=== PATIENT | female | born 2000 | race American Indian/Alaskan Native ===

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

== ENCOUNTER 2020-02-12 23:15 | Inpatient (IN) | payer OTHER ==
[2020-02-13] MEDS ORDERED: LACTATED RINGERS 500 ML IV ONE (00:17)
[2020-02-13] MEDS ORDERED: LACTATED RINGERS 1,000 ML IV ONE (00:37)
[2020-02-13 01:25] LABS: Bacteria,Urine 1+ /HPF (Negative); Bilirubin,Urine NEG (Negative); Blood,Urine LG (Negative); Color,Urine Yellow (Yellow); Mucus,Urine 3+ /HPF
[2020-02-13 01:26] LABS: Amphetamine Screen,Urine PRESUMPTIVE NEGATIVE; Benzodiazepines Screen,Urine PRESUMPTIVE NEGATIVE; Cannabinoid Screen,Urine PRESUMPTIVE NEGATIVE; Cocaine Screen,Urine PRESUMPTIVE NEGATIVE; Methadone Screen,Urine PRESUMPTIVE NEGATIVE; Opiate Screen,Urine PRESUMPTIVE NEGATIVE
[2020-02-13 01:27] LABS: Basophils % (Auto) 0.5 % (0.0-1.8); Eosinophils # (Auto) 0.1 K/mm3 (0.0-0.4); Eosinophils % (Auto) 0.9 % (0.0-4.3); Hematocrit 34.3 % (30.3-42.9); Hemoglobin 11.4 gm/dl (10.1-14.3); Lymphocytes # (Auto) 1.7 K/mm3 (1.2-5.4); Lymphocytes % (Auto) 20.7 % (13.4-35.0); Mean Corpuscular HGB Conc 33 % (30-34); Mean Corpuscular Volume 88 fl (79-97); Monocytes # (Auto) 0.7 K/mm3 (0.0-0.8); Platelet Count 154 K/mm3 (140-440); Red Blood Count 3.92 M/mm3 (3.65-5.03); Red Cell Distribution Width 14.6 % (13.2-15.2)
[2020-02-13 01:28] LABS: RBC,Urine > 182.0 /HPF (0.0-6.0)
[2020-02-13 02:02] LABS: HCG,Quantitative 1164 mIU/mL (0-4); Hepatitis C Virus Antibody Non-Reactive (NonReactive)
--- NOTE | 2020-02-13 02:08 | Ultrasound Report ---
TRANSABDOMINAL OB PELVIC ULTRASOUND INDICATION / CLINICAL INFORMATION: assessment. COMPARISON: None available. FINDINGS: There is a single intrauterine with an estimated sonographic gestational age of 34 weeks 4 days and CRISTI of 03/22/20. Clinical dates are 35 weeks 6 days. The heart rate is 144 bpm. presentation is cephalic. Amniotic fluid volume is at the lower limits of normal with an LISETH of 6.4 c m. The largest pocket measures 3.1 cm. The placenta is located in the fundus, is grade 0 and is free of the os. The cervix measures 5.1 cm in length and the internal os is closed. The HC/AC ratio is 1.09 and the cephalic index is 75.2. These measurements are within the normal rang e. The estimated weight is 2309 +/- 3 142 g. IMPRESSION: Single viable 34 week 4 day intrauterine without complication. Signer Name: Merritt Milton MD Signed: 02/13/2020 2:04 AM Workstation Name: [id number]
--- NOTE | 2020-02-13 02:09 | History and Physical Report ---
History of Present Illness Date of examination: 02/13/20 Date of admission: 02/13/2020 Chief complaint: my water broke History of present illness: Pt presents c/o having leaking of fluid since 2300 on 02/11/2020. States the fluid was clear. She gives h/o care at [facility]. LISETH sono today was 6.4. Pt does no report any problems this and denies any fevers or chills.She does c/o having contractions.No records available. 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 Social history: no significant social history - Obstetrical History Expected Date of Delivery: 03/13/20 (c/w sono done today) Actual Gestation: 35 Week(s) 6 Day(s) : 2 Para: 1 Number of Living Children: 1 Medications and Allergies Allergies Allergy/AdvReac Type Severity Reaction Status Date / Time No Known Allergies Allergy Verified 02/13/20 00:21 Home Medications Medication Instructions Recorded Confirmed Last Taken Type Acetaminophen [Mapap] 650 mg PO QID PRN #30 tablet 08/29/19 Unknown Rx cephALEXin [Keflex] 500 mg PO BID 10 Days #20 cap 08/29/19 Unknown Rx Review of Systems All systems: negative - Vital Signs Vital signs: Vital Signs Pulse Pulse Ox 105 H 100 02/12/20 23:34 02/12/20 23:34 Temp Pulse Resp BP Pulse Ox 98 F 107 H 16 125/74 99 02/12/20 23:54 02/13/20 02:01 02/12/20 23:54 02/12/20 23:54 02/13/20 02:01 - Physical Exam Lungs: Positive: Normal air movement Abdomen: Positive: normal appearance, soft. Negative: distention Genitourinary (Female): Positive: normal external genitalia (no lesions noted), normal perenium Vulva: both: normal Vagina: Positive: normal moisture Extremities: Positive: normal. Negative: tenderness, edema - Obstetrical FHR: category 1 Cervical Dilatation: 3 (no bag palpated on exam) Cervical Effacement Percentage: 50 station: -2 Uterine Contraction Pattern: Regular Uterine Tone Measurement Phase: Resting Uterine Contraction Intensity: Moderate Results Result Diagrams: 02/13/20 00:52 Abnormal lab results 0402/13/20 02/13/20 Range/Units 00:52 00:52 00:52 [place] % (Auto) 9.0 H (0.0-7.3) % HCG, Quant 1164 H (0-4) mIU/mL Urine WBC (Auto) 54.0 H (0.0-6.0) /HPF U Epithel Cells (Auto) 19.0 H (0-13.0) /HPF All other labs normal. Assessment and Plan - Patient Problems (1) 35 weeks gestation of Current Visit: Yes Status: Acute (2) Prolonged premature rupture of membranes Current Visit: Yes Status: Acute Plan to address problem: -start antibx -start pitocin -anticipate -GBS status is not known (3) labor in third trimester Current Visit: Yes Status: Acute Qualifiers: labor delivery status: without delivery Qualified Code(s): O60.03 - labor without delivery, third trimester Plan to address problem: -admit -antibx -anticipate vaginal delivery
[2020-02-13] MEDS ORDERED: ePHEDrine SULFATE 50 MG/1 ML INJ IV PRN ×2 (02:11→04:42)
[2020-02-13] MEDS ORDERED: AMPICILLIN/NS 2 GM/100 ML 2 GM/100 ML BAG IV ONE (02:11)
[2020-02-13] MEDS ORDERED: fentaNYL 100 MCG/2 ML INJ IV PRN (02:11)
[2020-02-13] MEDS ORDERED: MINERAL OIL 30 ML ORAL LIQD PO PRN (02:11)
[2020-02-13] MEDS ORDERED: LIDOCAINE (2%) 20 MG/1 ML VIAL 20 ML MDV INFILTRATI ONE (02:11)
[2020-02-13] MEDS ORDERED: TERBUTALINE 1 MG/1 ML INJ IVP PRN (02:11)
[2020-02-13] MEDS ORDERED: TERBUTALINE 1 MG/1 ML INJ SUB-Q PRN (02:11)
[2020-02-13] MEDS ORDERED: OXYTOCIN 20 UNIT/1000ML DRIP 20 UNITS/1,000 ML BAG IV SCH ×2 (03:00→10:30)
[2020-02-13] MEDS ORDERED: LACTATED RINGERS 1,000 ML IV SCH (03:00)
[2020-02-13] MEDS ORDERED: OXYTOCIN DRIP 30 UNITS/500 ML BAG IV SCH (03:00)
[2020-02-13] MEDS ORDERED: NALOXONE 2 MG/2 ML INJ IV PRN (04:42)
--- NOTE | 2020-02-13 04:42 | Anesthesia Consultation ---
Anesthesia Consult and Med Hx Date of service: 02/13/20 - Airway Anesthetic Teeth Evaluation: Good ROM Head & Neck: Adequate Mental/Hyoid Distance: Adequate Mallampati Class: Class II Intubation Access Assessment: Probably Good - Pre-Operative Health Status ASA Pre-Surgery Classification: ASA2 Proposed Anesthetic Plan: Epidural, Spinal - Other Systems Hx Alcohol Use: No
--- NOTE | 2020-02-13 04:46 | Progress Note ---
Labor Epidural - Labor Epidural Start Time: 04:17 Stop Time: 04:35 Performed by:: LOS FLORES Procedure: Patient requesting epidural for labor pain. Patient interviewed, IDed, consent signed. In the sterile conditions under local anesthesia 18G needle is placed in L3-L4 epidural space using water resistance technique. Spinal G27 needle is directed through the spinal membrane. Injected .5cc .75% Marcaine intrathecally. Epidural catheter passed to 14cm ana luisa. Negative aspiration test and negative test dose. Tolerated well.
[2020-02-13] MEDS ORDERED: fentaNYL-BUPIV 2 MCG/ML-0.125% 200 MCG/100 ML BAG EPIDURAL SCH (05:00)
[2020-02-13] MEDS ORDERED: AMPICILLIN/NS 1 GM/50 ML 1 GM/50 ML BAG IV SCH (06:14)
[2020-02-13] MEDS ORDERED: LIDOCAINE MPF (2%) 20 MG/1 ML VIAL 5 ML ONE (07:12)
--- NOTE | 2020-02-13 07:52 | Procedure Note ---
OB Delivery Note - Delivery Date of Delivery: 02/13/20 ( vaginal ) Hand Ornament Maker: CARRIE GARCIA Estimated blood loss: 200cc - Vaginal Delivery presentation: vertex Delivery position: OA Intrapartum events: labor-<37 weeks, PROM->1hr before delivery, foul smelling fluid Delivery induction: none Delivery augmentation: pitocin Delivery monitor: external FHT, external uterine Route of delivery: Delivery placenta: spontaneous Delivery cord: nuchal cord, 3 umbilical vessels Episiotomy: none Delivery laceration: none Anesthesia: epidural Delivery comments: female born over intact perineum, ML, cord around neck - somersaulted through. foul smelling fluid and baby felt warm. Infant handed off to NICU and DISPLAY ASSOCIATE for assessment d/t prematurity and PPROM. cord blood collected. placenta delivered complete and intact - sent to pathology. no lacerations. EBL 200, Apgars 8/9. mother and remain LDR stable - Infant A at 1 minute: 8 at 5 minutes: 9 Gender: Female (5#9oz)
[2020-02-13] MEDS ORDERED: IBUPROFEN 600 MG TAB PO SCH (09:38)
[2020-02-13] MEDS ORDERED: diphenhydrAMINE 25 MG CAP PO PRN (10:00)
[2020-02-13] MEDS ORDERED: ACETAMINOPHEN 325 MG TAB PO PRN (10:00)
[2020-02-13] MEDS ORDERED: BENZOCAINE/MENTHOL 20/0.5% TOP SPRAY 56 GM TP PRN (10:00)
[2020-02-13] MEDS ORDERED: WITCH HAZEL/ GLYCERIN PAD TP PRN (10:30)
[2020-02-13] MEDS ORDERED: LANOLIN/ZINC/DIMETHICONE (LANSINOH) 7 GM TP PRN (10:30)
[2020-02-13] MEDS ORDERED: ONDANSETRON 4 MG/2 ML INJ IV PRN (10:30)
[2020-02-13] MEDS ORDERED: PROMETHAZINE 25 MG TAB PO PRN (10:30)
[2020-02-13] MEDS: IBUPROFEN 800 MG TAB PO SCH ×2 (10:55→21:16)
[2020-02-13] MEDS: FERROUS SULFATE 325 MG TAB PO SCH ×2 (10:55→21:16)
[2020-02-13] MEDS: DOCUSATE SODIUM 100 MG CAP PO SCH ×2 (10:55→21:16)
[2020-02-13] MEDS: PRENATAL VIT27-FE FUMARATE-FOLIC ACID VIT TAB PO SCH (10:56)
[2020-02-13 20:30] LABS: Hematocrit 30.6 % (30.3-42.9); Hemoglobin 10.5 gm/dl (10.1-14.3)
[2020-02-13] MEDS ORDERED: MAGNESIUM HYDROXIDE (MOM) ORAL LIQD UDC PO PRN (22:00)
[2020-02-14] MEDS: IBUPROFEN 800 MG TAB PO SCH ×2 (05:15→12:37)
[2020-02-14] MEDS ORDERED: TETANUS,DIPH,PERTUSS(ACELL) VACCINE 0.5 ML SYRINGE IM ONE (06:00)
--- NOTE | 2020-02-14 09:10 | Discharge Summary ---
Providers - Providers Date of Admission: 02/13/20 02:11 Date of discharge: 02/14/20 (Pt would like to go home.) Attending physician: NIURKA CREWS Primary care physician: CRIMP SETTER Hospitalization Reason for admission: active labor, IUP - Delivery: Episiotomy: none Laceration: none Other procedures: none complications: none Discharge diagnosis: delivery [facility] baby: female Hospital course: S: Pt doing well. Ambulating, voiding, and passing flatus okay. BC: IUD. Pt is a pt from [facility] and plans to follow up with them . O: VSS, minimal bleeding. Fundus firm. H/H 10.5/30.6. Adequate I&O's. A: 19 y.o. s/p pf . Stable for home. P: Discharge home with instructions. Please follow up with your primary OB in 4 weeks. Condition at discharge: Good Disposition: DC-01 TO HOME OR SELFCARE Plan - Provider Discharge Summary Activity: routine, no sex for 6 weeks, no heavy lifting 4 weeks, no strenuous exercise Diet: routine Instructions: routine Additional instructions: [] Smoking cessation referral if applicable(refer to patient education folder for contact #) [] Refer to [facility] Booklet Call your doctor immediately for: * Fever > 100.5 * Heavy vaginal bleeding ( >1 pad per hour) * Severe persistent headache * Shortness of breath * Reddened, hot, painful area to leg or breast * Drainage or odor from incision. * Keep incision clean and dry at all times and follow doctor's instructions regarding bathing/showering - Follow up plan Follow up: PRIMARY CARE, [Primary Care Provider] - 7 Days () DARIAN NICOLE CNM [Advanced Practice Nurse] - (Congratulations! Please schedule a visit with your primary OB doctor in 4 weeks. If you have any questions or concerns or would like to follow up with [facility] ,please call [phone], to schedule an appointment. )
[2020-02-14] MEDS: PRENATAL VIT27-FE FUMARATE-FOLIC ACID VIT TAB PO SCH (09:11)
[2020-02-14] MEDS: DOCUSATE SODIUM 100 MG CAP PO SCH (09:11)
[2020-02-14] MEDS: FERROUS SULFATE 325 MG TAB PO SCH (09:11)
[2020-02-14 12:20] VITALS: BP 113/76
--- NOTE | 2020-02-14 13:04 | Post Anesthesia Evaluation ---
- Post Anesthesia Evaluation Patient Participated: Yes Airway Patent: Yes Stable Respiratory Function: Yes Nausea/Vomiting: No Temp > 96.8F: Yes Pain Manageable: Yes Adequeate Hydration: Yes Anesthesia Complications: No Block Receding Appropriately: Yes Patient on Ventilator: No
== END 2020-02-14 12:43 | disposition home or self-care (01) | DRG 807 ==
LOC: TRG 23:15 → LD 02-13 02:11 → TRG 02-13 02:11 → OB 02-13 09:31
PROVIDERS: ADMIT Obstetrics & Gynecology; ATTEND Obstetrics & Gynecology
PROC: 10E0XZZ Delivery of Products of Conception, External Approach (ICD-10-PCS; principal; 2020-02-13)
PROC: 3E0234Z Introduction of Serum, Toxoid and Vaccine into Muscle, Percutaneous Approach (ICD-10-PCS; 2020-02-13)
PROC: 3E0R3BZ Introduction of Anesthetic Agent into Spinal Canal, Percutaneous Approach (ICD-10-PCS; 2020-02-13)
PROC: 00HU33Z Insertion of Infusion Device into Spinal Canal, Percutaneous Approach (ICD-10-PCS; 2020-02-13)
DX: O60.14X0 Preterm labor third trimester with preterm delivery third trimester, not applicable or unspecified (principal); Z37.0 Single live birth; Z3A.35 35 weeks gestation of pregnancy; Z23 Encounter for immunization; O69.81X0 Labor and delivery complicated by cord around neck, without compression, not applicable or unspecified
CPT/HCPCS: 36415; 76805; 80307; 81001; 84702; 85014; 85018; 85025; 86592; 86706; 86762; 86803; 86850; 86900; 86901; 87086; 87806; 88307; 90471; G0378; J0290; J2590; J3010; J7120

== ENCOUNTER 2021-03-08 16:34 | Emergency (ER) | payer OTHER | END 2021-03-08 19:00 | disposition left against medical advice (07) | LOC: ED 16:34 | DX: Z53.21 Procedure and treatment not carried out due to patient leaving prior to being seen by health care provider (principal) ==